=== PATIENT | male | born 1995 | race Caucasian/White ===

== ENCOUNTER 2018-10-20 12:36 | Emergency (ER) | payer BC ==
[2018-10-20] MEDS ORDERED: Neomycin/Polym/Bacit TOP OINT* 15 GM TOPICAL ONE (13:04)
[2018-10-20] MEDS ORDERED: Ketorolac INJ* 30 MG/ML 1 ML VIAL IV ONE (13:04)
[2018-10-20] MEDS ORDERED: NS 0.9% 1000 ML** 1,000 ML IV ONE (13:05)
[2018-10-20] MEDS ORDERED: Bacitracin OINTMENT* 0.5% 0.5 oz TUBE TOPICAL ONE (13:12)
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
[2018-10-20] MEDS ORDERED: Erythromycin OPTH OINT* APPLIC OINT BOTH EYES SCH (14:00)
[2018-10-20 15:16] VITALS: BP 137/71
== END 2018-10-20 15:15 | disposition home or self-care (01) ==
LOC: EDBD → ED 12:36
DX: T20.20XA Burn of second degree of head, face, and neck, unspecified site, initial encounter (principal); T26.42XA Burn of left eye and adnexa, part unspecified, initial encounter; T26.41XA Burn of right eye and adnexa, part unspecified, initial encounter; X12.XXXA Contact with other hot fluids, initial encounter; Y92.9 Unspecified place or not applicable; Z88.0 Allergy status to penicillin
CPT/HCPCS: 96374; 99282; A9270-GY; J1885